=== PATIENT | male | born 1960 | race Caucasian/White ===

== ENCOUNTER → 2023-08-28 | Emergency (ER) | payer OTHER ==
[~2023-08-28] MED LIST: NA CHLORIDE 0.9% 1,000 ML ONE; NA CHLORIDE 0.9% 100 ML ONE; NA CHLORIDE 0.9% 250 ML ONE; PIPERACIL/TAZO 3.375 GM VIAL IV ONE; VANCOMYCIN 1 GM/VIAL ONE
--- NOTE | 2023-08-28 09:43 | RAD REPORT ---
EXAM DESCRIPTION: RAD - Chest Single View - 08/28/2023 9:38 am CLINICAL HISTORY: AICD skin infection COMPARISON: No comparisons FINDINGS: Lines: Pacemaker/ICD. Lungs: No evidence of edema or pneumonia. Pleural: No significant pleural effusions or pneumothorax. Cardiac: The heart size is within normal limits. Mediastinum: Within normal limits. Bones: No acute fractures. Other: None IMPRESSION: No acute cardiopulmonary disease.
[2023-08-28 10:01] LABS: Absolute Lymphocytes (CBC) 0.2 K/uL (0.7-4.9); Hematocrit 45.2 % (39.6-49.0); MCV 95.1 fL (80-100); MPV 8.7 fL (7.6-11.3); Platelets 171 thou/uL (152-406); RBC Red Blood Cell Count 4.75 M/uL (4.33-5.43)
[2023-08-28 10:22] LABS: Potassium 3.8 mEq/L (3.5-5.1); Troponin High Sensitivity 52.8 pg/mL (<58.9)
[2023-08-28 10:25] LABS: Bilirubin Direct 0.7 mg/dL (0-0.2); Bilirubin Indirect, Calculated 1.7 mg/dL (0.2-0.8); Bilirubin Total 2.4 mg/dL (0.2-1.0)
[2023-08-28 10:45] LABS: SARS-CoV-2 Antigen Rapid Res Negative (Negative)
--- NOTE | 2023-08-28 11:43 | EDPHYS ---
Physician Documentation [facility] Name: Kel Espinoaz Age: 63 yrs Sex: Male : 1960 Arrival Date: 08/28/2023 Time: 09:17 Bed 19 Private MD: ED Physician Lucia Corea HPI: 08/28 09:36 This 63 yrs old Male presents to ER via Ambulatory with complaints of Pocket where sp3 Pacemaker was put in is infected. 09:36 63-year-old male with history of coronary artery disease status post AICD placement sp3 approximately 2 months ago with subsequent continued drainage from placement site mild in nature who over the last 2 to 3 days has developed worsening drainage, chills, fatigue and upper respiratory symptoms. Patient also has a history of CHF with an EF of 25%. Patient denies fever, chest pain, shortness of breath, abdominal pain, nausea, vomiting, diarrhea, syncope, near syncope but does endorse mild cough. Remainder of ROS is negative. No peripheral edema reported. No known sick contacts, travel history or prolonged immobilization noted.. Historical: - Allergies: 09:26 No Known Allergies; ll1 - PMHx: 09:26 heart problems; ll1 - PSHx: 09:26 pacemaker; ll1 - Immunization history:: Adult Immunizations up to date. - Social history:: Smoking status: Patient denies any tobacco usage or history of. ROS: 09:37 Constitutional: Negative for fever, chills, and weight loss, Eyes: Negative for injury, sp3 pain, redness, and discharge, ENT: Negative for injury, pain, and discharge, Neck: Negative for injury, pain, and swelling, Abdomen/GI: Negative for abdominal pain, nausea, vomiting, diarrhea, and constipation, Back: Negative for injury and pain, MS/Extremity: Negative for injury and deformity, Neuro: Negative for headache, weakness, numbness, tingling, and seizure, Psych: Negative for depression, anxiety, suicide ideation, homicidal ideation, and hallucinations, Allergy/Immunology: Negative for hives, rash, and allergies, Endocrine: Negative for neck swelling, polydipsia, polyuria, polyphagia, and marked weight changes, 09:37 All other systems are negative, Exam: 09:38 Constitutional: This is a well developed, well nourished patient who is awake, alert, sp3 and in no acute distress. Head/Face: Normocephalic, atraumatic. Eyes: Pupils equal round and reactive to light, extra-ocular motions intact. Lids and lashes normal. Conjunctiva and sclera are non-icteric and not injected. Cornea within normal limits. Periorbital areas with no swelling, redness, or edema. ENT: Nares patent. No nasal discharge, no septal abnormalities noted. External auditory canals are clear. Oropharynx with no redness, swelling, or masses, exudates, or evidence of obstruction, uvula midline. Mucous membranes moist. Neck: Trachea midline, no thyromegaly or masses palpated, and no cervical lymphadenopathy. Supple, full range of motion without nuchal rigidity, or vertebral point tenderness. No Meningismus. Respiratory: Lungs have equal breath sounds bilaterally, clear to auscultation and percussion. No rales, rhonchi or wheezes noted. No increased work of breathing, no retractions or nasal flaring. Abdomen/GI: Soft, non-tender, with normal bowel sounds. No distension or tympany. No guarding or rebound. No evidence of tenderness throughout. Back: No spinal tenderness. No costovertebral tenderness. Full range of motion. MS/ Extremity: Pulses equal, no cyanosis. Neurovascular intact. Full, normal range of motion. Neuro: Awake and alert, GCS 15, oriented to person, place, time, and situation. Cranial nerves II-XII grossly intact. Motor strength 5/5 in all extremities. Sensory grossly intact. Cerebellar exam normal. Normal gait. Psych: Awake, alert, with orientation to person, place and time. Behavior, mood, and affect are within normal limits. 09:38 Chest/axilla: AICD site in various stages of healing including approximate 1 cm area of drainage and mild erythema. Patient is tachycardic in the 130s with normal blood pressure and is afebrile. No peripheral edema noted.. 10:18 ECG was reviewed by the Attending Physician. EKG demonstrates ventricular paced rhythm sp3 at 130 bpm with adequate capture. Vital Signs: 09:27 BP 116 / 64; Pulse 131; Resp 17; Temp 99.4(O); Pulse Ox 100% on R/A; Weight 76.2 kg; ll1 Height 5 ft. 8 in. ; Pain 0/10; 10:09 BP 122 / 75; Pulse 127; Resp 26; Pulse Ox 97% on R/A; Pain 0/10; tl4 10:30 BP 105 / 64; Pulse 122; Resp 27; Pulse Ox 97% on R/A; tl4 11:00 BP 113 / 74; Pulse 124; Resp 25; Pulse Ox 97% on R/A; tl4 11:30 BP 110 / 67; Pulse 109; Resp 21; Pulse Ox 98% on R/A; tl4 12:14 BP 115 / 70; Pulse 102; Resp 24; Pulse Ox 96% on R/A; tl4 09:27 Body Mass Index 25.54 (76.20 kg, 172.72 cm) ll1 09:27 Pain Scale: Adult ll1 10:09 Pain Scale: Adult tl4 MDM: 09:22 Patient medically screened. 3 09:38 Data reviewed: vital signs, nurses notes, old medical records, lab test result(s), EKG, [facility] radiologic studies. ED course: 63-year-old male with tachycardia and signs of sepsis. Sources include skin infection at AICD site, pneumonia, other viral syndrome, strep pharyngitis, others. Sepsis workup initiated however we will hold on significant fluid resuscitation given patient's history of CHF and 25% EF. We will start with 1 L normal saline and reassess. Lactate, labs, cultures, swabs are all pending. Chest x-ray and EKG also pending. Disposition probable admission with antibiotics as indicated. Clinically patient is well-appearing and in no acute distress.. 11:41 ED course: Discussed with Dr. Villanueva who got patient transferred to [place] [id number] under his partner. Patient will be transferred there and we will continue IV antibiotics.. 08/28 09:25 Order name: Basic Metabolic Panel; Complete Time: 10:26 3 08/28 09:25 Order name: CBC with Diff sp3 08/28 09:25 Order name: Troponin HS; Complete Time: 10:26 3 08/28 09:25 Order name: Lactate w/ 2H reflex if indic. sp3 08/28 09:25 Order name: Blood Culture Adult (2) sp3 08/28 09:34 Order name: Flu sp3 08/28 09:34 Order name: SARS RAPID sp3 08/28 09:34 Order name: Strep 3 08/28 09:35 Order name: LFT's; Complete Time: 10:26 sp3 08/28 09:35 Order name: BNP; Complete Time: 10:26 sp3 08/28 10:47 Order name: Throat Culture EDIL 08/28 12:41 Order name: CBC Smear Scan [facility] 08/28 09:25 Order name: XRAY Chest (1 view); Complete Time: 09:51 sp3 08/28 09:25 Order name: EKG; Complete Time: 09:26 sp3 08/28 09:25 Order name: EKG - Nurse/Tech; Complete Time: 10:17 sp3 08/28 09:25 Order name: IV Saline Lock; Complete Time: 10:17 sp3 08/28 09:25 Order name: Labs collected and sent; Complete Time: 10:05 sp3 Administered Medications: 09:35 CANCELLED (Changed): ns 0.9% 2000 ml IV at 1 bolus Per protocol; 1000 mL bolus sp3 10:55 Drug: NS 0.9% IV 1000 ml IV at 1 bolus Per protocol; 1000 mL bolus Route: IV; Rate: 1 tl4 bolus; Site: left antecubital; 12:05 Follow up: Response: No adverse reaction; IV Status: Completed infusion; IV Intake: tl4 1000ml 11:20 Drug: Piperacillin-Tazobactam IVPB 3.375 grams IVPB once over 60 mins; (mix in NS 100 tl4 mL) Route: IVPB; Rate: 100 ml/hr; Infused Over: 60 mins; Site: left antecubital; Delivery: Primary tubing; 12:04 Follow up: Response: No adverse reaction; IV Status: Completed infusion; IV Intake: tl4 100ml 11:24 Drug: vancoMYCIN IVPB 1 grams IVPB once over 2 hrs Route: IVPB; Rate: 125 ml/hr; tl4 Infused Over: 2 hrs; Site: left antecubital; Delivery: Primary tubing; 13:21 Follow up: Response: No adverse reaction; IV Status: Completed infusion; IV Intake: tl4 250ml Disposition Summary: 08/28/23 11:42 Transfer Ordered Notes: Transfer Location: [facility] System sp3 Reason: Higher level of care sp3 Condition: Serious sp3 Problem: new sp3 Symptoms: have worsened sp3 Accepting Physician: ER under cardiology(08/28/23 13:20) tl4 Diagnosis - Wound infection, sepsis sp3 Forms: - Medication Reconciliation Form sp3 - SBAR form sp3 Signatures: Dispatcher [employer] EDRemigio Simmons RN RN ll1 Lucia Corea MD MD sp3 Rustam Munson RN RN tl4 Corrections: (The following items were deleted from the chart) 09:35 09:35 NS 0.9% IV 2000 ml IV at 1 bolus Per protocol; 1000 mL bolus ordered. sp3 sp3 13:20 11:42 ER under cardiology sp3 tl4
--- NOTE | 2023-08-28 11:43 | ER ---
Nurse's Notes [facility] Name: Kel Espinoza Age: 63 yrs Sex: Male : 1960 Arrival Date: 08/28/2023 Time: 09:17 Bed 19 Private MD: Diagnosis: Wound infection, sepsis Presentation: 08/28 09:27 Chief complaint: Patient states: Chills, fever, cough, congestion, nausea started ll1 night. Sent in for further eval. Worried about infection in pocket of pacemaker. Coronavirus screen: Vaccine status: Patient reports being unvaccinated. Client denies travel out of the [place] in the last 14 days. congestion, cough unrelated to allergies, fatigue, fever. Ebola Screen: Patient denies travel to an Ebola-affected area in the 21 days before illness onset. Initial Sepsis Screen: Does the patient meet any 2 criteria? HR > 90 bpm. No. Patient's initial sepsis screen is negative. Does the patient have a suspected source of infection? No. Patient's initial sepsis screen is negative. Risk Assessment: Do you want to hurt yourself or someone else? Patient reports no desire to harm self or others. Onset of symptoms was August 27, 2023. 09:27 Method Of Arrival: Ambulatory ll1 09:27 Acuity: MIREYA 2 ll1 Triage Assessment: 12:11 General: Appears uncomfortable, Behavior is calm, cooperative. tl4 Historical: - Allergies: 09:26 No Known Allergies; ll1 - PMHx: 09:26 heart problems; ll1 - PSHx: 09:26 pacemaker; ll1 - Immunization history:: Adult Immunizations up to date. - Social history:: Smoking status: Patient denies any tobacco usage or history of. Screenin:10 [facility] ED Fall Risk Assessment (Adult) History of falling in the last 3 months, tl4 including since admission No falls in past 3 months (0 pts) Confusion or Disorientation No (0 pts) Intoxicated or Sedated No (0 pts) Impaired Gait No (0 pts) Mobility Assist Device Used No (0 pt) Altered Elimination No (0 pt) Score/Fall Risk Level 0 - 2 = Low Risk Oriented to surroundings, Maintained a safe environment, Educated pt \T\ family on fall prevention, incl call for assistance when getting out of bed, Assessed \T\ reinforced patient's understanding of fall precautions, Provided non-skid footwear, Hourly rounding (assess needs \T\ fall precautionary measures) done, Used ambulatory aids as needed (educated on \T\ assisted with), Used gait belt as appropriate. Abuse screen: Denies threats or abuse. Denies injuries from another. Nutritional screening: No deficits noted. Tuberculosis screening: No symptoms or risk factors identified. Assessment: 10:15 Reassessment: Patient and/or family updated on plan of care and expected duration. Pain tl4 level reassessed. Patient is alert, oriented x 3, equal unlabored respirations, skin warm/dry/pink. Patient denies pain at this time. Pt states he has discomfort at surgical site that is draining but denies pain.. Pain: Denies pain. 11:26 Reassessment: No changes from previously documented assessment. Patient and/or family tl4 updated on plan of care and expected duration. Pain level reassessed. Patient is alert, oriented x 3, equal unlabored respirations, skin warm/dry/pink. Patient denies pain at this time. 12:30 Reassessment: No changes from previously documented assessment. Patient and/or family tl4 updated on plan of care and expected duration. Pain level reassessed. Patient is alert, oriented x 3, equal unlabored respirations, skin warm/dry/pink. 12:30 Reassessment: Report to CRISTY De La Torre at [facility]. Transfer form signed by patient. tl4 13:19 Reassessment: Report given to [facility]. tl4 Vital Signs: 09:27 BP 116 / 64; Pulse 131; Resp 17; Temp 99.4(O); Pulse Ox 100% on R/A; Weight 76.2 kg; ll1 Height 5 ft. 8 in. ; Pain 0/10; 10:09 BP 122 / 75; Pulse 127; Resp 26; Pulse Ox 97% on R/A; Pain 0/10; tl4 10:30 BP 105 / 64; Pulse 122; Resp 27; Pulse Ox 97% on R/A; tl4 11:00 BP 113 / 74; Pulse 124; Resp 25; Pulse Ox 97% on R/A; tl4 11:30 BP 110 / 67; Pulse 109; Resp 21; Pulse Ox 98% on R/A; tl4 12:14 BP 115 / 70; Pulse 102; Resp 24; Pulse Ox 96% on R/A; tl4 09:27 Body Mass Index 25.54 (76.20 kg, 172.72 cm) ll1 09:27 Pain Scale: Adult ll1 10:09 Pain Scale: Adult tl4 Vitals: 12:14 Cardiac Rhythm Assessment Paced. tl4 ED Course: 09:19 Patient arrived in ED. rg4 09:20 Lucia Corea MD is Attending Physician. sp3 09:29 Triage completed. ll1 09:29 Arm band placed on. ll1 09:39 XRAY Chest (1 view) In Process Unspecified. EDMS 10:05 BNP Sent. bc6 10:05 LFT's Sent. bc6 10:05 Strep Sent. bc6 10:05 SARS RAPID Sent. bc6 10:05 Flu Sent. bc6 10:05 Blood Culture Adult (2) Sent. bc6 10:05 Lactate w/ 2H reflex if indic. Sent. bc6 10:05 Basic Metabolic Panel Sent. bc6 10:05 Troponin HS Sent. bc6 10:05 Inserted saline lock: 20 gauge in left antecubital area, using aseptic technique. Blood bc6 collected. 10:18 Rustam Munson, RN is Primary Nurse. tl4 11:27 initiated transfer to [facility]. bd 11:50 pt accepted in transfer to [facility] ER by Dr Womack, admin approval given by baldomero Ryan. 12:11 Patient has correct armband on for positive identification. Placed in gown. Bed in low tl4 position. Call light in reach. Side rails up X2. Adult w/ patient. Provided Education on: ed process. Client placed on continuous cardiac and pulse oximetry monitoring. NIBP monitoring applied. quality assurance monitor final on. Door closed. Noise minimized. Lights dimmed. Moved to private room. Warm blanket given. Pillow given. 12:11 No provider procedures requiring assistance completed. Patient transferred, IV remains tl4 in place. Administered Medications: 09:35 CANCELLED (Changed): ns 0.9% 2000 ml IV at 1 bolus Per protocol; 1000 mL bolus sp3 10:55 Drug: NS 0.9% IV 1000 ml IV at 1 bolus Per protocol; 1000 mL bolus Route: IV; Rate: 1 tl4 bolus; Site: left antecubital; 12:05 Follow up: Response: No adverse reaction; IV Status: Completed infusion; IV Intake: tl4 1000ml 11:20 Drug: Piperacillin-Tazobactam IVPB 3.375 grams IVPB once over 60 mins; (mix in NS 100 tl4 mL) Route: IVPB; Rate: 100 ml/hr; Infused Over: 60 mins; Site: left antecubital; Delivery: Primary tubing; 12:04 Follow up: Response: No adverse reaction; IV Status: Completed infusion; IV Intake: tl4 100ml 11:24 Drug: vancoMYCIN IVPB 1 grams IVPB once over 2 hrs Route: IVPB; Rate: 125 ml/hr; tl4 Infused Over: 2 hrs; Site: left antecubital; Delivery: Primary tubing; 13:21 Follow up: Response: No adverse reaction; IV Status: Completed infusion; IV Intake: tl4 250ml Medication: 12:12 VIS not applicable for this client. tl4 Intake: 12:04 IV: 100ml; Total: 100ml. tl4 12:05 IV: 1000ml; Total: 1100ml. tl4 13:21 IV: 250ml; Total: 1350ml. tl4 Outcome: 11:42 ER care complete, transfer ordered by . sp3 13:20 Transferred by ground EMS to other acute care facility: [facility]. Transfer form tl4 completed. X-rays sent w/ patient. 13:20 Condition: stable 13:20 Instructed on the need for transfer, 13:20 Patient left the ED. tl4 Signatures: Dispatcher [employer] EDMS Whitney Crooks Rubi rg4 Remigio Mccullough RN RN ll1 Lucia Corea MD MD sp3 Nimo Carpio bc6 Rustam Munson RN RN tl4
[2023-08-28 12:40] LABS: Blood Morphology Comment NOT SEEN (NOT SEEN); Platelet Estimate ADEQ; White Blood Cell Scan OK (OK)
[2023-08-28 13:28] VITALS: TEMP 99.4
[2023-08-28 13:50] VITALS: BP 115/70; O2SAT 96
--- NOTE | 2023-08-29 15:27 | EKG ---
Test Date: 2023-08-28 Test Time: 10:02:58 Keyboard Operator: JS MEASUREMENT RESULTS: Intervals: Rate: 128 TN: QRSD: 164 QT: 360 QTc: 525 [place]: P: 86 TN: QRS: 269 T: 102 INTERPRETIVE STATEMENTS: Ventricular-paced rhythm Abnormal ECG No previous ECG available for comparison Electronically Signed On 08-29-23 15:24:28 SUPERVISOR INSPECTING by Anjum Gutierrez
== END ==
LOC: ER 09:17
DX: A41.9 Sepsis, unspecified organism (principal); T82.7XXA Infection and inflammatory reaction due to other cardiac and vascular devices, implants and grafts, initial encounter; Z95.810 Presence of automatic (implantable) cardiac defibrillator; Z11.52 Encounter for screening for COVID-19
CPT/HCPCS: 87040 ×2; 87070; 85025; 80048; 36415; 87205 ×2; 80076; 87081; 83605; 84484; 83880; 87804 ×2; 71045; 87811; J2543; J7050; J7030; 93005